=== PATIENT | male | born 1935 | race Caucasian/White ===

== ENCOUNTER 2020-01-13 19:29 | Inpatient (IN) | payer OTHER ==
[~2020-01-13] VITALS: Ht 180.3 cm; Wt 64.1 kg
[2020-01-13 19:30] VITALS: BP 123/66
[2020-01-14 07:46] VITALS: BP 142/74
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
--- NOTE | 2020-01-14 17:16 | NUR ---
ASSUMED CARE OF PT THIS AFTERNOON. PT ALERT AND ORIENTED TIMES THREE WITH A FLAT SAD AFFECT. VSS. PT DENIES PAIN, SI/HI/AH/VH. PT C/O NAUSEA PRN MEDICATIONS GIVEN WITH SOME RELEIF. PT UP AROUND THE UNIT WITH LITTLE INTERACTION WITH STAFF AND PEERS. PT TOLERTAES MEDS. REFUSED DINNER.
[2020-01-14 19:44] VITALS: BP 135/74
[2020-01-15 02:56] VITALS: BP 135/74
--- NOTE | 2020-01-15 03:23 | NUR ---
Assumed care on 01/14/20 @ 19:15, in bed awake and alert, oriented x3-4, Denies SI/HI/AH/VH. Reports mild depression, denies anxiety. Denies pain. 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 Cooperated with assessment, HRRR, Wheeze noted on expiration, when prompted to cough, unproductive cough noted. ABD N x 4Q. Reports the nausea that he experienced at dinner had diminished. Ate 100% of snack. Compliant with medication administration. Rodney score of 30, low fall risk. Able to toilet self, ambulates with a steady gait with a walker. Will continue to monitor as per unit protocol for safety and comfort.
[2020-01-15 06:50] LABS: ABSOLUTE NEUTROPHILS 6.8 thou/uL (1.4-8.2); BASOPHILS 0.6 % (0.0-2.0); EOSINOPHILS 0.8 % (0.0-3.0); HEMATOCRIT 39.2 % (42.0-52.0); LYMPHOCYTES 10.2 % (24.0-44.0); MCH 29.1 pg (26.0-34.0); MCV 88.2 fL (80.0-100.0); MONOCYTES 5.3 % (1.0-8.0); PLATELET COUNT 303 thou/uL (150-400); POLYS 83.1 % (36.0-66.0); RBC 4.45 mil/uL (4.50-6.00); RDW 15.9 % (10.5-14.5); WBC 8.2 thou/uL (4.0-11.0)
[2020-01-15 07:09] LABS: CALCIUM 9.1 mg/dL (8.5-10.1); CREATININE 1.7 mg/dL (0.7-1.3); POTASSIUM 4.6 mmol/L (3.5-5.1)
[2020-01-15 07:48] LABS: TSH 2.503 uIU/mL (0.358-3.740)
[2020-01-15 09:19] VITALS: BP 124/71
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
--- NOTE | 2020-01-15 16:22 | NUR ---
SW attempted to complete a 1 on 1 with Pt. Pt unable due to nausea and not feeling well. Sw checked in with Pt twice today. Pt has was in bed each time and not feeling well enough to have a 1 on 1.
[2020-01-15 19:35] VITALS: BP 119/69
--- NOTE | 2020-01-16 03:42 | NUR ---
Assumed pt's care this pm shift. Pt alert and oriented x4. VSS on RA. Pt was in his room at time of assessment. Denies pain. Denies N/V. Pttook meds per emar without difficulties. Pt currently in his room, sleeping. Will continue to monitor.
[2020-01-16 07:27] VITALS: BP 115/68
--- NOTE | 2020-01-16 12:41 | NUR ---
PATIENT WAS UP, AMBULATING TO DAYROOM WITH ASSIST OF ROLLER WALKER WHEN CARE ASSUMED. PATIENT IS ALERT, AND ORIENTED X 3-4, ABLE TO VOICE NEED. PATIENT TOOK ALL MEDICATIONS WHOLE WITHOUT DIFFICULTY. PATIENT IS EATING MEALS, AND DRINKING FLUID WELL. PATIENT DENIES SUICIDAL/HOMICIDAL IDEATION. PATIENT RATED DEPRESSION 5/10, HE DENIES ANXIETY. PATIENT REPORTS HIS LAST BOWEL MOVEMET WAS ON 01/15/20. PATIENT DENIES HAVING PHYSICAL PAIN. AFFECT IS FLAT/BLUNTED, MOOD IS DEPRESSED. NO SIGN OF ACUTE DISTRESS NOTED AT THIS TIME, WILL MONITOR OR SAFETY.
--- NOTE | 2020-01-16 16:51 | NUR ---
KATY called [facility], , and spoke with Emily Nolasco LMSW concerning Pt discharge. Emily stated she would speak to the DON concerning transportation for Tuesday and call KATY back.
[2020-01-16 19:50] VITALS: BP 117/68
[2020-01-16 20:30] VITALS: BP 117/68
--- NOTE | 2020-01-17 00:10 | NUR ---
PATIENT HAS BEEN IN BED SINCE BEGINNING OF SHIFT. HE DID AWAKE AND WALKED WITH WALKER TO THE BATHROOM. PATIENT IS A/0X3-4. HE DENIES PAIN. HE DENIES SI/HI/AVH. HE HAS BEEN CALM AND COOOPERATIVE AND VERY PLEASANT AND POLITE. PATIENT'S LUNGS ARE COARSE AT TIMES AND DIMINISHED. PATIENT HAS NONPRODUCTIVE OCCASIONAL COUGH. PATIENT DOES HAVE COPD AND IS NEGATIVE FOR COVID. PATIENT TOOK HIS MED WHOLE WITH WATER. VSS AND PHYSICAL ASSESSMENT WNL. PATIENT SLEEPING AT THIS TIME. BED IN LOW POSITION. ROUTINE ROUNDS TO ASSESS SAFETY AND STATUS OF PATIENT. NO NEGATIVE BEHAVIORS NOTED.
[2020-01-17 07:38] VITALS: BP 136/73
--- NOTE | 2020-01-17 11:19 | NUR ---
PLEASANT DURING AM ASSESSMENT -OUT OF ROOM AND EATING BREAKFAST-SOCIAL WITH MALE PEER AT TABLE AND COOPERATIVE/PLEASANT WITH REQUESTS FROM NURSING STAFF. FULL RANGE AFFECT-ORINETED TO PLACE AND DATE. REPORTS GOOD APPETITE AND SLEEP. DENIES C/O PAIN/DISCOMFORT. WHEN QUESTIONED WHY HE IS HERE STATES "I GUESS I DON'T REALLY KNOW" GIAT STEADY WITHOUT ASSISTIVE DEVICES. REPORTS LONG HISTORY OF SMOKING AND DX COPD-LUNG SOUNBDS COURSE AND IS NOTED TO HAVE INFREQUENT NON-PRODUCTIVE COUGH-DENIES SHORTNESS OF BREATH OR ANY OTHER RESPIRATORY SYMPTOMS AND STATES FEELS LIKE BREATHING IS "G00D"
--- NOTE | 2020-01-17 11:40 | NUR ---
WITHDRAWN TO ROOM IMMEDIATLY AFTER EATING BREAKFAST WHEN APPROACHED IN ROOM TO COME TO GROUP AND TOLD "THE UNIT POLICY IS THAT YOU NEED TO BE OUT OF ROOM ITS NOT GOOD FOR YOU TO BE IN BED ALL DAY" STATES "TOO BAD THAT IS WHERE I WILL BE" AND REFUSED TO COME OUT FOR 0900 GROUP
[2020-01-17 19:58] VITALS: BP 140/86
--- NOTE | 2020-01-18 05:10 | NUR ---
Assumed care of pt @ 1900. Pt calm et cooperative this shift. Took medications whole without difficulty. Ambulates the halls ad ruslan with steady gait. Isolated in room most of shift. VSWNL. Health assessment with no abnormalities at present time. Denies SI/HI/AVH. Currently resting in bed with eyes closed. Will continue to monitor per protocol.
[2020-01-18 07:18] VITALS: BP 117/68
[2020-01-18 09:36] VITALS: BP 140/86
[2020-01-18] MEDS ORDERED: ZYRTEC10 M2 PO (09:46)
[2020-01-18] MEDS ORDERED: NORVASC5 MG PO (09:46)
[2020-01-18] MEDS ORDERED: OXCARBAZEPINE300 MG PO (09:46)
[2020-01-18] MEDS ORDERED: ZOLOFT25 MG PO (09:46)
[2020-01-18] MEDS ORDERED: PEPCID20 MG PO (09:47)
--- NOTE | 2020-01-18 10:18 | NUR ---
1000 RESUMMED CARE FROM OVERNIGHT SHIFT THIS AM PATIENT UP IN DAYROOM QUIET. PATIENT ATE BREAKFAST WELL TOOK MEDICATION WITHOUT INCIDENCE. PATIENT ORIENTED TIMES 4 DENIES SI/HI/AH/VH AT PRESENT. PATIENTS ABDOMEN SOFT ROUND, BOWEL SOUNDS PRESENT LUNGS CLEAR. PATIENT VOMITED HIS EGGS AROUND 0920 PATIENT CALM COOPERATIVE. PATIENT DISCHARGED TO [facility] WITH BELONGINGS AND DISCHARGE INSTRUCTIONS.
--- NOTE | 2020-01-18 11:51 | NUR ---
KATY contacted [facility] and adrian with the charge nurse to inform of recommendations for Pt to be quarantined for 14 days due to a positive COVID on this unit. KATY informed that pt was tested on 01/16/2020 and the result was negative. D/c information has been faxed to the facility
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
== END 2020-01-18 10:00 | DRG 57 ==
LOC: SBH
PROVIDERS: Nurse Practitioner; ADMIT Psychiatry & Neurology Psychiatry; ATTEND Psychiatry & Neurology Psychiatry
DX: G30.9 Alzheimer's disease, unspecified (principal); F02.80 Dementia in other diseases classified elsewhere, unspecified severity, without behavioral disturbance, psychotic disturbance, mood disturbance, and anxiety; I10 Essential (primary) hypertension; F32.9 Major depressive disorder, single episode, unspecified; Z20.828 Contact with and (suspected) exposure to other viral communicable diseases; J44.9 Chronic obstructive pulmonary disease, unspecified; Z87.891 Personal history of nicotine dependence
CPT/HCPCS: 10880